=== PATIENT | male | born 1950 | race Caucasian/White ===

== ENCOUNTER 2018-09-17 10:06 | Day surgery (SDC) | payer OTHER ==
[~2018-09-17] VITALS: Ht 182.9 cm; Wt 75.2 kg
[~2018-09-17 10:06] MED LIST: ALBU83IN INH; COEN100T PO; DALI1TAB2 PO; DULC5TAB PO; DULO1CAP2 PO; NS 1,000 ML IV ONE; OMEP20CA3 PO; PROAAER10 INH; ROSU40TA3 PO; SYMB16INH INH; SYNT137T7 PO; THEO300T12 PO; TIOT18INH INH; VITAD1000T PO; XANA0.5T PO
[2018-09-17] MEDS ORDERED: LIDOCAINE 2% INJ 100 MG/5 ML SDV (FOR ANES.) As Ordered ONE (10:50)
[2018-09-17] MEDS ORDERED: PROPOFOL 200 MG/20 ML VIAL As Ordered ONE ×2 (10:50→11:34)
--- NOTE | 2018-09-17 11:39 | ROOR ---
Patient Name: Johny Christie Procedure Date: 09/17/2018 10:49 AM Date of : 1950 Age: 68 Room: [facility] Gender: Male Note Status: Finalized Procedure: Colonoscopy Indications: Screening for colorectal malignant neoplasm Providers: Dario Powell MD Referring MD: Mu Chaudhry Md Requesting Provider: Medicines: Monitored Anesthesia Care Complications: No immediate complications. Procedure: Pre-Anesthesia Assessment: - Prior to the procedure, a History and Physical was performed, and patient medications and allergies were reviewed. The patient is competent. The risks and benefits of the procedure and the sedation options and risks were discussed with the patient. All questions were answered and informed consent was obtained. Patient identification and proposed procedure were verified by the physician, the nurse and the anesthesiologist in the endoscopy suite. Mental Status Examination: alert and oriented. Airway Examination: normal oropharyngeal airway and neck mobility. Respiratory Examination: clear to auscultation. CV Examination: normal. Prophylactic Antibiotics: The patient does not require prophylactic antibiotics. Prior Anticoagulants: The patient has taken no previous anticoagulant or antiplatelet agents. ASA Grade Assessment: III - A patient with severe systemic disease. After reviewing the risks and benefits, the patient was deemed in satisfactory condition to undergo the procedure. The anesthesia plan was to use monitored anesthesia care (MAC). Immediately prior to administration of medications, the patient was re-assessed for adequacy to receive sedatives. The heart rate, respiratory rate, oxygen saturations, blood pressure, adequacy of pulmonary ventilation, and response to care were monitored throughout the procedure. The physical status of the patient was re-assessed after the procedure. The Colonoscope was introduced through the anus and advanced to the cecum, identified by appendiceal orifice and ileocecal valve. The colonoscopy was somewhat difficult due to the patient's oxygen desaturation. The patient tolerated the procedure. The quality of the bowel preparation was good. Findings: perianal warts Six semi-pedunculated polyps were found in the transverse colon, ascending colon and cecum. The polyps were 2 to 5 mm in size. These polyps were removed with a cold snare. Resection and retrieval were complete. Estimated blood loss was minimal. The retroflexed view of the distal rectum and anal verge was normal and showed no anal or rectal abnormalities. Impression: - Six 2 to 5 mm polyps in the transverse colon, in the ascending colon and in the cecum, removed with a cold snare. Resected and retrieved. - The distal rectum and anal verge are normal on retroflexion view. Recommendation: - Discharge patient to home (ambulatory). - Repeat colonoscopy in 3 years for surveillance of multiple polyps. Dario Powell MD Dario Powell MD 09/17/2018 11:38:49 AM Electronically signed by Dario Powell MD Number of Addenda: 0 Note Initiated On: 09/17/2018 10:49 AM Estimated Blood Loss: Estimated blood loss: none. Estimated blood loss was minimal.
[2018-09-17 12:00] VITALS: BP 121/75
== END 2018-09-17 12:34 | disposition home or self-care (01) ==
LOC: M OPP 10:06
PROVIDERS: ATTEND Surgery
DX: D12.0 Benign neoplasm of cecum (principal); D12.2 Benign neoplasm of ascending colon; D12.3 Benign neoplasm of transverse colon; A63.0 Anogenital (venereal) warts; Z12.11 Encounter for screening for malignant neoplasm of colon